=== PATIENT | female | born 1980 | race Caucasian/White ===

== ENCOUNTER → 2016-10-04 | Outpatient (CLI) | payer OTHER ==
--- NOTE | 2016-10-05 08:39 | US ---
Ultrasound and Venous Duplex Doppler Study of Left Lower Extremity History: Painful left inguinal area, first at 14 weeks Technique: High frequency transducer was used for imaging and Doppler study of the veins of the lower extremity. Pulsed Doppler and color Doppler were utilized, along with various maneuvers to assess flow in the veins. Findings: In the subcutaneous fat in the left inguinal area is a transverse tubular structure that courses between the region of the common femoral vasculature to the region of the pubic bone. There is no internal flow. The structures not compressible. It is suspicious for a thrombosed collateral venous structure. There is equivocally thrombus in the left hemipelvis at the junction of the common iliac vein with the internal and external iliac veins. This area however is very difficult to visualize due to overlying uterus. The deep veins of the lower extremity are normally compressible between the groin and the upper calf and have normal Doppler waveforms within them. No deep venous thrombosis is identified. No superficial phlebitis or Flores cyst is identified. Impression: Suspect thrombosed venous collateral in the left inguinal area. No other venous varicosities were identified in the left labial region. There is possible DVT in the left hemipelvis. The patient does not describe any leg swelling. If clinically indicated an MR venogram (without contrast) of the pelvis might be considered. Results discussed with Mallory Brody MD. CHRIS
== END ==
LOC: FIMAGING 14:11
PROVIDERS: ATTEND Internal Medicine
DX: I87.9 Disorder of vein, unspecified (principal); Z3A.14 14 weeks gestation of pregnancy

== ENCOUNTER → 2016-10-05 | Outpatient (CLI) | payer OTHER ==
--- NOTE | 2016-10-05 12:28 | MR ---
MRI angiogram pelvis without contrast. History: Evaluate for thrombus iliac vein. Superficial thrombus left groin. Pain and swelling. Comparisons: Ultrasound 04 October 2016 TECHNIQUE: MRI is performed of the pelvis using a 3 Ramandeep MRI system. Axial and coronal imaging was o btained with standard anatomic imaging sequences. Additionally sequences were performed to evaluate t he venous system. 3D evaluation performed at the workstation. Findings: Marker denotes the area of pain and swelling corresponding to what appears to be a venous v arix anterior to the left symphysis seen on ultrasound. On ultrasound it appeared to be thrombosed wi thout blood flow. Both common iliac veins are significantly compressed more predominant on the left t cherry the right and narrowed from the gravid uterus. There is no evidence for filling defect to indicat e thrombus in the left iliac vein. Bifurcation is not well visualized secondary to bowel artifact fro m overlying sigmoid colon. No significant free fluid in the pelvis. No significant bone marrow abnorm ality. Impression: Compression and narrowing of the common iliac vein bilaterally more severe on the left fr om the gravid uterus. No evidence for thrombus in the left common iliac vein. Probable venous varix o r collateral with superficial thrombosis as suggested on ultrasound yesterday anterior to the left sy mphysis. This was also reviewed by Dr. Sebastian Fowler who concurs. Results called to Dr. Mallory Brody.
== END ==
LOC: FIMAGING 07:21
PROVIDERS: ATTEND Internal Medicine
DX: R19.00 Intra-abdominal and pelvic swelling, mass and lump, unspecified site (principal)
CPT/HCPCS: C8918

== ENCOUNTER → 2016-10-19 | Outpatient (CLI) | payer OTHER ==
--- NOTE | 2016-10-19 12:50 | US ---
October 19, 2016 Maternal Medicine Consultation Indication: 1. Symptomatic left inguinal pain with suspicion for superficial thrombosis Dear Dr. Rasheed and Providers at [facility], Thank you for the opportunity to evaluate your patient, Mrs. Mo. As you know, Chayito is a 35 year old G1 who began experiencing left sided inguinal throbbing pain about 2 weeks ago. She believe d that she was experiencing a potential hernia as this was shortly after some strenuous yoga moves. Imaging was obtained which revealed concerns for a potential venous collateral thrombosis in the left inguinal area and a potential small DVT in the left hemipelvis/ovarian vein area. MR angiogram was also performed to better delineate the ultrasound findings. This revealed compression and narrowing of the common iliac vein bilaterally but no clot was seen in the left common iliac. However, there w as a venous varix or collateral with superficial thrombosis consistent with thrombosis. I was notifi ed of these results and made recommendations to start prophylactic Lovenox. She has never had a superficial or deep venous thrombosis. She is healthy except for a history of va govagal syncope and low blood pressure. Her surgical history reveals oral surgery in middle school, and a right lateral release of her knee for patellar tracking problems. She has never had difficulty with anesthesia. She has no known allergies. Her only medications are vitamins and the currently prescribed daily Jimi enox. She denies smoking and recreational drug use. Her family history is essentially negative. A maternal uncle in poor health has had some clots. A p aternal grandmother had DVT following hysterectomy and after ovarian cancer. Physical Exam: Deferred secondary to the consultative nature of today's ultrasound Ultrasound: Imaging not performed at today's visit. Impression/Recommendations: I reviewed the physiologic changes that occur in that predispose some women to increased ri sk of clotting. She is aware that there is the hypercoagulable state of , status and some d egree of endothelial (vessel damage) that occurs to develop clot (aka Virchow's triad). We discussed that outside of a great majority of superficial venous thrombosis do not require anticoagu lation and are typically treated with supportive care measures. However, when they occur above the le maurisio of the greater saphenous vein and in particular in the pelvis, there is a higher collateralizatio n with the deep venous system which becomes more problematic. Initially, I suggested a 3 month cours e. Given that there is concern for a small gonadal DVT? potentially, and the fact that her hypercoag ulable state and venous stasis that is common in is not going to change, I recommend extend ing the prophylaxis through her and would include the period. We discussed the safety profile of LMWH in in the fact that it does not cross the placenta, and is not typically immunogenic (antibodies can develop which impact platelets). There is increase d risk of bone loss and given that she is white, and thin, I did recommend a Vitamin D/Calcium supple ment. There is an increased risk of bleeding with any anticoagulation, prophylactic dosing has less r isk than therapeutic dosing. We discussed labor management issues also. Chayito negates the due cruz e for her and does not desire induction of labor. I explained that the only reason for a c ontrolled delivery with timed induction is to prepare those women who strongly desire epidural pain m anagement for their delivery as she must be off the medication for 24 hours to receive neuraxial anes thesia. She is thinking of an unmedicated delivery, therefore, she can stay on Lovenox (no need to t ransition to Heparin) until she is concerned for labor. At that point, she can defer the LMWH inject ion. Further, given that this is an unusual circumstance and she will have been adequately treated t hrough her , she could choose to defer starting at 39 weeks until the baby arrives for an im proved safety profile. I did recommend that she consider a prophylactic dose after delivery (typical ly started 6-12 hours later depending on route of delivery). In summary, I recommend the followin. Continue daily Lovenox through and 6 weeks . 2. Check CBC to assure normal platelets 3. Start Vitamin D/Calcium supplement. 4. Does not need to be transitioned to Heparin at 36 weeks; aware that she will forgo neuraxial anes thesia until 24 hours has passed from her last dose. She does not desire induction of labor, but rat her desires a spontaneous labor event. We discussed "heralding" symptoms of labor as reasons to hold her dosing. Thanks for the opportunity to participate in your patient's care. Should you have any questions or c oncerns, please do not hesitate to contact me. Our consultation was approximately 45 minutes in [facility] with 40 minutes face to face reviewing her history, plan of care and management. Sincerely, Awilda Mcginnis MD Planting Machine Operator Maternal Medicine Department of Obstetrics & Gynecology [facility]
== END ==
LOC: FIMAGING 11:41
PROVIDERS: ATTEND Obstetrics & Gynecology
DX: Z34.81 Encounter for supervision of other normal pregnancy, first trimester (principal); Z3A.16 16 weeks gestation of pregnancy

== ENCOUNTER 2017-03-25 10:05 | Inpatient (IN) | payer OTHER ==
[2017-03-25] MEDS ORDERED: OLIVE OIL 118 ML BTL ONE (10:33)
[2017-03-25] MEDS ORDERED: LIDOCAINE 1% 300 MG/30 ML SDV ONE (10:33)
[2017-03-25] MEDS ORDERED: AMMONIA AROMATIC 1 EACH AMP IH ONE (10:33)
[2017-03-25] MEDS ORDERED: TERBUTALINE SULFATE 1 MG/ML VIAL ONE (10:34)
[2017-03-25] MEDS ORDERED: MISOPROSTOL 200 MCG TAB ONE (10:34)
[2017-03-25] MEDS ORDERED: OXYTOCIN 10 UNIT/ML VIAL ONE (10:34)
[2017-03-25] MEDS ORDERED: OXYTOCIN/RINGERS LACTATE 1,000 ML IV PRN (10:49)
[2017-03-25] MEDS ORDERED: TERBUTALINE SULFATE 1 MG/ML VIAL IV PRN (10:49)
[2017-03-25] MEDS ORDERED: OLIVE OIL 118 ML BTL MISC PRN (10:49)
[2017-03-25] MEDS ORDERED: LR 1,000 ML IV PRN (10:49)
[2017-03-25] MEDS ORDERED: EPSOM SALT 454 GM TP PRN (10:49)
[2017-03-25 11:12] LABS: % IMMATURE GRANULYOCYTES 1.5 % (0.0-1.1); ABSOLUTE IMMATURE GRANULOCYTES 0.19 10^3/uL (0.00-0.10); ADD DIFF? NO; ADD MORPH? NO; ADD SCAN? NO; ATYPICAL LYMPHOCYTE FLAG 0 (0-99); FRAGMENT RBC FLAG 0 (0-99); HEMATOCRIT 42.2 % (38.0-47.0); HEMOGLOBIN 15.3 g/dL (12.6-16.3); LEFT SHIFT FLG 10 (0-99); LIPEMIA HEMOLYSIS FLAG 90 (0-99); MEAN CELL HEMOGLOBIN 32.3 pg (27.9-34.1); MEAN CELL HEMOGLOBIN CONCENTR. 36.3 g/dL (32.4-36.7); MEAN PLATELET VOLUME 12.5 fL (8.7-11.7); PLATELET CLUMPS FLAG 20 (0-99); PLATELET COUNT 143 10^3/uL (150-400); RED BLOOD CELL COUNT 4.74 10^6/uL (4.18-5.33); RED CELL DISTRIBUTION WIDTH 12.7 % (11.5-15.2)
--- NOTE | 2017-03-25 11:26 | GHP ---
[f rep st] PREOP HISTORY AND PHYSICAL DATE OF ADMISSION: 03/25/2017 ADMITTING DIAGNOSIS: Intrauterine at 39-1/7 weeks' gestation, presented in active labor. HISTORY OF PRESENT ILLNESS: Chayito is a 36-year-old, 1, para 0, with an unknown last menst rual period with an EDC of 03/31/2017, confirmed by an 8-week ultrasound. She began having contract ions at 6:30 a.m. in the morning on the , and then she had spontaneous rupture of the membranes w ith thick meconium at 9:30 a.m. She presented at 10:30 with strong active contractions. hear t tones are 130s. She is maninder every 2-3 minutes, and her cervical exam is complete and +2. She has thick meconium. The patient is not feeling the urge to push at this moment but we will be c lose by. The patient's course has been complicated by advanced maternal age. She has had normal tamika ting in this , normal verifi, normal AFP, normal ultrasounds. She is Rh negative. The fat her of the baby is also Rh negative, and she declined RhoGAM. She developed a superficial blood ranjana t in her left groin at approximately 14 weeks' gestation, was diagnosed with a superficial thrombosi s. Saw Dr. Mcginnis [facility], and because of collateral vein and circulation possibility of becoming a deep vein thrombosis, the recommendation was to anticoagulate her with Lovenox during the and for 6 weeks . The patient was transitioned to heparin at 36 weeks' and has had a normal p latelet count after that. Her last dose of heparin was at 10:30 last night. No other significant p renatal risk factors. OBSTETRICAL HISTORY: None; this is her first . PAST MEDICAL HISTORY: DVT; no other. SURGICAL HISTORY: She had a right knee scope at age 17, wisdom teeth extraction. No other surgical problems. ALLERGIES: No known drug allergies. MEDICATIONS: Include vitamins, DHA, and IM heparin. LABS: She is O negative, antibody negative. RPR nonreactive. Rubella immune. Hepatitis negative. HIV negative. Cystic fibrosis SMA fragile X negative. Ashkenazi Tenriism panel negative. Parvovir us immune. Pap normal. Gonorrhea and chlamydia negative. Verifi normal. AFP normal. 1-hour GTT 85. GBS is negative. Most recent hematocrit is 39. SOCIAL HISTORY: She is . She lives with her . 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 She denies tobacco, alcohol, and drug use. . REVIEW OF SYSTEMS: Negative except for obvious labor contractions, meconium, and has had good movement. FAMILY HISTORY: Paternal grandfather had a myocardial infarction. Both grandfathers have heart dis ease. Maternal grandfather breast cancer. Paternal grandmother, ovarian cancer in brain. Paternal grandfather migraines. Maternal grandfather Parkinson's. PHYSICAL EXAMINATION: VITAL SIGNS: Today she is afebrile, vital signs are stable. heart ton es are 130s. GENERAL: Category 1, maninder every 2 minutes. PELVIC: Again, cervical exam is c omplete and +2. Thick meconium. ASSESSMENT AND PLAN: 36-year-old, 1, para 0, at 39-1/7 weeks' gestation in spontaneous labo r with spontaneous rupture of membranes with thick meconium. Expect patient to began second stage o f labor soon. We will have an DAIRY MANAGEMENT SPECIALIST present for delivery because of the meconium. status is gen erally reassuring. /[id number]/MODL
[2017-03-25 13:39] LABS: BASE EXCESS CORD -10.9 mEq/L (-13.6--3.2); CORD BLOOD PCO2 52.6 mmHg (37-60); PH ARTERIAL CORD BLOOD 7.17 (7.10-7.37)
[2017-03-25 13:42] LABS: PH VENOUS CORD BLOOD 7.24 (7.20-7.42)
[2017-03-25] MEDS: IBUPROFEN 600 MG TAB PO PRN ×2 (13:42→19:34)
[2017-03-25] MEDS ORDERED: HYDROCORTISONE 0.5% CREAM TP PRN (13:45)
[2017-03-25] MEDS ORDERED: SIMETHICONE 80 MG TAB CHEW PO PRN (13:45)
[2017-03-25] MEDS ORDERED: HYDROCODONE/APAP 5/325 TAB PO PRN (13:45)
[2017-03-25] MEDS ORDERED: ACETAMINOPHEN 325 MG TAB PO PRN (13:45)
--- NOTE | 2017-03-25 13:48 | OBDEL ---
Info Type: Vaginal GBS+: No Indications for Delivery: Spontaneous Labor Vaginal Delivery - Labor and Delivery Onset of Contractions Date: 03/25/17 Onset of Contractions Time: 06:30 Onset of Contractions Type: Spontaneous Rupture of Membranes Date: 03/25/17 Rupture of Membranes Time: 09:30 Rupture of Membranes Type: Spontaneous Amniotic Fluid Color: Thick Meconium Dilation Complete Date: 03/25/17 Dilation Complete Time: 10:35 Placenta Delivery Date: 03/25/17 Placenta Delivery Time: 13:01 Total Hours of Labor: 6 Laceration: 2nd Degree Repair: 2-0, Vicryl Vaginal Sponge Count Correct: Yes Vaginal Needle Count Correct: Yes Vaginal Sweep Performed: Yes EBL: 300 Delivery Events: None Cord Gases: Cord Gases Cord Blood PCO2 52.6 mmHg (37-60) 03/25/17 12:54 Cord Base Excess -10.9 mEq/L (-13.6--3.2) 03/25/17 12:54 Cord ABG pH 7.17 (7.10-7.37) 03/25/17 12:54 Cord VBG pH 7.24 (7.20-7.42) 03/25/17 12:54 - Medications Labor Augmentation/Induction Methods Used: None Operative Report - Delivery Cord Gases: Cord Gases Cord Blood PCO2 52.6 mmHg (37-60) 03/25/17 12:54 Cord Base Excess -10.9 mEq/L (-13.6--3.2) 03/25/17 12:54 Cord ABG pH 7.17 (7.10-7.37) 03/25/17 12:54 Cord VBG pH 7.24 (7.20-7.42) 03/25/17 12:54 Data Gutiérrez Delivery Date: 03/25/17 Delivery Time: 12:54 LISSET: 03/31/17 Gestational Age: 39 week(s) and 1 day(s) Sex of Infant: Female Score (1 Min): 7 Score (5 Min): 8 ICD10 Worksheet Patient Problems: Problems Problem Status Onset Vaginal delivery Acute - ICD10 Problem Qualifiers (1) Vaginal delivery
[2017-03-25] MEDS: DOCUSATE SODIUM 100 MG CAP PO PRN (19:34)
[2017-03-26] MEDS: IBUPROFEN 600 MG TAB PO PRN ×4 (01:17→21:57)
--- NOTE | 2017-03-26 08:42 | OBPP ---
Progress Note Assessment/Plan: Assessment: s/p PPD # 1 - pt is stable Plan: Continue routine pp care Encourage ambulation Plan for d/c home in am 7/9 03/26/17 08:39 Subjective: Pt seen and examined. Doing well with no complaints. Minimal cramping. Moderate lochia. Mckinley regular diet, voiding without difficulty and passing flatus. No BM yet. BF with some difficulty, using donor milk. Objective: 03/25/17 10:45 Patient ABO/Rh O NEGATIVE 03/25/17 10:45 Temp Pulse Resp BP Pulse Ox 36.6 C 68 20 120/73 96 03/25/17 20:00 03/25/17 20:00 03/25/17 20:00 03/25/17 20:00 03/25/17 20:00 Uterine Position/Fundal Height: Umbilicus -2 Uterine Tone: Firm Physical Exam - Physical Exam General Appearance: WD/WN, alert, no apparent distress Respiratory: lungs clear, normal breath sounds Cardiac/Chest: regular rate, rhythm Abdomen: normal bowel sounds, non-tender, soft, flatus (+) Extremities: non-tender, normal inspection Skin: normal color, warm/dry Neuro/Psych: alert, normal mood/affect, oriented x 3
[2017-03-26] MEDS: ENOXAPARIN 40 MG/0.4 ML SYR SC SCH (09:07)
[2017-03-26] MEDS: DOCUSATE SODIUM 100 MG CAP PO PRN (21:57)
[2017-03-27 09:31] VITALS: BP 97/55; PULSE 58; RESP 18; TEMP 98.4; O2SAT 96
[2017-03-27] MEDS: DOCUSATE SODIUM 100 MG CAP PO PRN (10:34)
[2017-03-27] MEDS: ENOXAPARIN 40 MG/0.4 ML SYR SC SCH (10:34)
[2017-03-27] MEDS: IBUPROFEN 600 MG TAB PO PRN (10:35)
--- NOTE | 2017-03-27 13:02 | OBGCSDC ---
General Delivery Information - General Info : 1 Para: 1 Abortions: 0 Delivery Physician/CNM: Magaly Mayer Admission Date: 03/25/17 Labs: Patient ABO/Rh O NEGATIVE 03/25/17 10:45 Hct 42.2 % (38.0-47.0) 03/25/17 10:45 Vaginal - Diagnosis Labor: Spontaneous Rupture of Membranes Type: Spontaneous Amniotic Fluid Color: Thick Meconium Laceration: 2nd Degree Repair: 2-0, Vicryl Delivery Events: None - Operations/Procedures L&D Analgesia/Anesthesia Type: Local (1% lidocaine) - Hospital Course Antepartum: AMA, Rh neg, superficial clot in leg treated with Lovenox and Heparin Intrapartum: spontaneous contractions, SROM thick mec, presented to hospital complete, pushed 2 hours. : uncomplicated PP course - Delivery Type: Vaginal EBL: 300 Teague Data Gutiérrez Delivery Date: 03/25/17 Delivery Time: 12:54 LISSET: 03/31/17 Gestational Age: 39 week(s) and 3 day(s) Sex of Infant: Female Score (1 Min): 7 Score (5 Min): 8 Discharge Information - Discharge Information Discharge Medications: Ibuprofen Condition: Good Instruction/Follow Up: Four Weeks, Six Weeks Discharge Physician/YONISM: Magaly Mayer
== END 2017-03-27 17:45 | disposition home or self-care (01) | DRG 775 ==
LOC: FLD 10:05 → FOB 18:22
PROVIDERS: ADMIT Obstetrics & Gynecology; ATTEND Obstetrics & Gynecology
PROC: 0KQM0ZZ Repair Perineum Muscle, Open Approach (ICD-10-PCS; principal; 2017-03-25)
PROC: 10E0XZZ Delivery of Products of Conception, External Approach (ICD-10-PCS; principal; 2017-03-25)
DX: O77.0 Labor and delivery complicated by meconium in amniotic fluid (principal); O70.1 Second degree perineal laceration during delivery; O22.23 Superficial thrombophlebitis in pregnancy, third trimester; I82.812 Embolism and thrombosis of superficial veins of left lower extremity; Z3A.38 38 weeks gestation of pregnancy; Z37.0 Single live birth
CPT/HCPCS: J1650; J3105

== ENCOUNTER → 2017-05-16 | Outpatient (CLI) | payer OTHER | LOC: FIMAGING 12:49 | PROVIDERS: ATTEND Obstetrics & Gynecology | DX: I82.422 Acute embolism and thrombosis of left iliac vein (principal) ==

== ENCOUNTER → 2018-08-15 | Outpatient (CLI) | payer OTHER | LOC: BMCIMAGING 11:21 | PROVIDERS: ATTEND Obstetrics & Gynecology | DX: R92.8 Other abnormal and inconclusive findings on diagnostic imaging of breast (principal) ==